=== PATIENT | male | born 1960 ===

== ENCOUNTER 2020-03-05 11:16 | Inpatient (IN) ==
[2020-03-05] MEDS: NS 0.9% 1000 ml BAG 1,000 ML IV ONE ×3 (13:15→15:20)
[2020-03-05] MEDS ORDERED: Lidocaine 1% MPF 5 ML VIAL INJ ONE (13:49)
[2020-03-05 13:50] LABS: ABS Basophils 0.1 10^3/ul (0-0.2); ABS Lymphocytes 2.3 10^3/ul (1.0-4.8); ABS Monocytes 1.2 10^3/ul (0-0.8); ABS Neutrophils 8.2 10^3/ul (1.5-7.7); Eosinophil % 0.2 %; Hematocrit 43 % (42-52); Hemoglobin 14.2 g/dL (14.0-18.0); Lymphocyte % 19.5 %; Mean Corpuscular HGB Conc 33 g/dL (31-36); Mean Corpuscular Hemoglobin 30 pg (27-31); Mean Corpuscular Volume 91 fL (80-94); Mean Platelet Volume 8.1 fL (7.4-10.4); Platelet Count 316 10^3/uL (150-450); Red Blood Count 4.69 10^6 /uL (4.18-5.48); Red Cell Distribution Width 13 % (10-15); White Blood Count 11.8 10^3/uL (3.5-10.8)
[2020-03-05 14:07] LABS: Influenza A Molecular Negative (Negative); Influenza B Molecular Negative (Negative)
[2020-03-05 14:11] LABS: Activated Partial Thrombo Time 36.6 seconds (26.0-38.0); INR 1.2 (0.82-1.09)
[2020-03-05 14:20] LABS: ALT 18 U/L (7-52); Albumin 4.3 g/dL (3.2-5.2); Albumin/Globulin Ratio 1.2 (1-3); Alkaline Phosphatase 124 U/L (34-104); BUN/Creatinine Ratio 15.9 (8-20); Blood Urea Nitrogen 18 mg/dL (6-24); C Reactive Protein 15.77 mg/L (<8.01); CO2 Carbon Dioxide 27 mmol/L (22-32); Calcium 11.5 mg/dL (8.6-10.3); Chloride 96 mmol/L (101-111); EGFR African American 80.6 (>60); EGFR Non-African American 66.7 (>60); Globulin 3.6 g/dL (2-4); Glucose 90 mg/dL (70-100); Sodium 131 mmol/L (135-145); Total Protein 7.9 g/dL (6.4-8.9)
[2020-03-05 14:41] LABS: Anion Gap 8 mmol/L (2-11)
[2020-03-05 15:09] LABS: Body Fluid Source Cerebral Spinal
[2020-03-05 15:34] LABS: CSF Glucose 45 mg/dL (40-70)
[2020-03-05 16:03] LABS: Body Fluid Mono 40 %
[2020-03-05] MEDS ORDERED: cefTRIAXone 2 GM ADDV.VIAL 2 GM in NS 0.9% 100 ml BAG 100 ML IVPB ONE (16:20)
[2020-03-05] MEDS ORDERED: Acyclovir IV 1,000 MG in NS 0.9% 250 ml 250 ML IVPB ONE (16:22)
[2020-03-05 16:27] LABS: Potassium Redraw 3.9 mmol/L (3.5-5.0)
[2020-03-05] MEDS ORDERED: NS 0.9% 1000 ml BAG 1,000 ML IV ONE (17:01)
[2020-03-05] MEDS ORDERED: Ondansetron 4 mg VIAL 2 MG/ML 2 ml VIAL IV ONE (17:01)
[2020-03-05] MEDS ORDERED: Vancomycin 2,000 MG in NS 0.9% 500 ml BAG 500 ML IVPB ONE (18:00)
[2020-03-05] MEDS ORDERED: Vancomycin per Pharmacy 1 EA NOTE FOLLOW UP SCH (18:00)
[2020-03-05] MEDS ORDERED: Al Hydrox/Mg Hydrox/Simet LIQ 30 ML UDC PO PRN (18:19)
[2020-03-05] MEDS ORDERED: Ondansetron 4 mg VIAL 2 MG/ML 2 ml VIAL IV PRN (18:19)
[2020-03-05] MEDS ORDERED: NS 0.9% 1000 ml BAG 1,000 ML IV SCH (18:30)
[2020-03-05] MEDS: Latanoprost 0.005% 2.5 ml BTL BOTH EYES SCH (23:22)
[2020-03-05] MEDS: Enoxaparin 40 MG/0.4 ML SYR SUBCUT SCH (23:23)
[2020-03-06] MEDS ORDERED: Acyclovir IV 500 MG/10 ML 100 ML VIAL (500 MG) IVPB SCH (01:00)
[2020-03-06] MEDS: Acyclovir IV 850 MG in NS 0.9% 250 ml 250 ML IVPB SCH ×3 (05:37→22:54)
[2020-03-06] MEDS ORDERED: Vancomycin 1,250 MG IV x ONCE IVPB SCH ×2 (06:00→08:00)
[2020-03-06 06:08] LABS: ABS Basophils 0.1 10^3/ul (0-0.2); ABS Eosinophils 0.2 10^3/ul (0-0.6); ABS Lymphocytes 2.7 10^3/ul (1.0-4.8); ABS Neutrophils 5.4 10^3/ul (1.5-7.7); Eosinophil % 1.7 %; Hematocrit 41 % (42-52); Hemoglobin 13.5 g/dL (14.0-18.0); Lymphocyte % 29.5 %; Mean Corpuscular HGB Conc 33 g/dL (31-36); Mean Corpuscular Hemoglobin 30 pg (27-31); Mean Corpuscular Volume 91 fL (80-94); Mean Platelet Volume 8.1 fL (7.4-10.4); Nucleated Red Blood Cells % 0.1; Platelet Count 293 10^3/uL (150-450); Red Blood Count 4.45 10^6 /uL (4.18-5.48); Red Cell Distribution Width 13 % (10-15); White Blood Count 9.3 10^3/uL (3.5-10.8)
[2020-03-06 06:32] LABS: BUN/Creatinine Ratio 15.8 (8-20); Calcium 9.9 mg/dL (8.6-10.3); EGFR African American 79.8 (>60); Potassium 4.1 mmol/L (3.5-5.0)
[2020-03-06] MEDS: cefTRIAXone 2 GM ADDV.VIAL 2 GM in NS 0.9% 100 ml BAG 100 ML IV SCH ×2 (07:40→18:32)
[2020-03-06] MEDS: Cholecalciferol (VIT D3) 1,000 unit TAB PO SCH (10:29)
[2020-03-06] MEDS: Aspirin EC 81 mg TAB.EC (enteric coated) PO SCH (10:30)
[2020-03-06] MEDS: Nicotine PATCH 7 MG/24 HR PATCH TRANSDERM SCH (10:31)
[2020-03-06] MEDS: VANCOMYCIN IVPB SCH (18:32)
[2020-03-06] MEDS: Enoxaparin 40 MG/0.4 ML SYR SUBCUT SCH (23:01)
[2020-03-06] MEDS: Latanoprost 0.005% 2.5 ml BTL BOTH EYES SCH (23:01)
[2020-03-07] MEDS: VANCOMYCIN IVPB SCH ×3 (02:42→18:18)
[2020-03-07] MEDS: Acyclovir IV 850 MG in NS 0.9% 250 ml 250 ML IVPB SCH ×3 (04:23→19:32)
[2020-03-07] MEDS: cefTRIAXone 2 GM ADDV.VIAL 2 GM in NS 0.9% 100 ml BAG 100 ML IV SCH ×2 (06:08→18:22)
[2020-03-07] MEDS ORDERED: Vancomycin Trough Check NOTE FOLLOW UP ONE (07:30)
[2020-03-07] MEDS: Aspirin EC 81 mg TAB.EC (enteric coated) PO SCH (07:32)
[2020-03-07] MEDS: Cholecalciferol (VIT D3) 1,000 unit TAB PO SCH (07:33)
[2020-03-07] MEDS: Nicotine PATCH 7 MG/24 HR PATCH TRANSDERM SCH (07:34)
[2020-03-07 11:01] LABS: BUN/Creatinine Ratio 15.1 (8-20); C Reactive Protein 9.64 mg/L (<8.01); Calcium 10.1 mg/dL (8.6-10.3); EGFR African American 86.8 (>60); EGFR Non-African American 71.8 (>60); Potassium 3.9 mmol/L (3.5-5.0)
[2020-03-07 11:07] LABS: ABS Basophils 0.1 10^3/ul (0-0.2); ABS Eosinophils 0.2 10^3/ul (0-0.6); ABS Lymphocytes 1.6 10^3/ul (1.0-4.8); ABS Monocytes 0.7 10^3/ul (0-0.8); ABS Neutrophils 5.3 10^3/ul (1.5-7.7); Hematocrit 39 % (42-52); Hemoglobin 12.9 g/dL (14.0-18.0); Lymphocyte % 20.6 %; Mean Corpuscular HGB Conc 33 g/dL (31-36); Mean Corpuscular Hemoglobin 30 pg (27-31); Mean Corpuscular Volume 92 fL (80-94); Mean Platelet Volume 8.7 fL (7.4-10.4); Platelet Count 281 10^3/uL (150-450); Red Blood Count 4.26 10^6 /uL (4.18-5.48); Red Cell Distribution Width 13 % (10-15); White Blood Count 7.8 10^3/uL (3.5-10.8)
[2020-03-07 11:13] LABS: Vancomycin Trough 14.9 mcg/mL
[2020-03-07] MEDS: Enoxaparin 40 MG/0.4 ML SYR SUBCUT SCH (19:31)
[2020-03-07] MEDS: Latanoprost 0.005% 2.5 ml BTL BOTH EYES SCH (21:00)
[2020-03-07 23:09] LABS: IgG Immunoblot Negative (Negative); IgM Immunoblot Negative (Negative)
[2020-03-08 01:29] LABS: Enterovirus Source CSF
[2020-03-08] MEDS: VANCOMYCIN IVPB SCH ×2 (01:59→10:19)
[2020-03-08] MEDS: Acyclovir IV 850 MG in NS 0.9% 250 ml 250 ML IVPB SCH ×3 (04:00→19:39)
[2020-03-08] MEDS: cefTRIAXone 2 GM ADDV.VIAL 2 GM in NS 0.9% 100 ml BAG 100 ML IV SCH (05:02)
[2020-03-08 06:33] LABS: ABS Basophils 0.1 10^3/ul (0-0.2); ABS Eosinophils 0.4 10^3/ul (0-0.6); ABS Lymphocytes 2.4 10^3/ul (1.0-4.8); ABS Monocytes 0.8 10^3/ul (0-0.8); ABS Neutrophils 4.2 10^3/ul (1.5-7.7); Eosinophil % 5.1 %; Hematocrit 38 % (42-52); Hemoglobin 12.3 g/dL (14.0-18.0); Lymphocyte % 30.4 %; Mean Corpuscular HGB Conc 33 g/dL (31-36); Mean Corpuscular Hemoglobin 30 pg (27-31); Mean Corpuscular Volume 92 fL (80-94); Mean Platelet Volume 8.7 fL (7.4-10.4); Platelet Count 295 10^3/uL (150-450); Red Blood Count 4.11 10^6 /uL (4.18-5.48); Red Cell Distribution Width 13 % (10-15); White Blood Count 7.9 10^3/uL (3.5-10.8)
[2020-03-08 06:38] LABS: Calcium 9.8 mg/dL (8.6-10.3); Potassium 3.8 mmol/L (3.5-5.0)
[2020-03-08 06:43] LABS: BUN/Creatinine Ratio 13.3 (8-20); EGFR African American 95.1 (>60); EGFR Non-African American 78.6 (>60)
[2020-03-08] MEDS: Nicotine PATCH 7 MG/24 HR PATCH TRANSDERM SCH (09:10)
[2020-03-08] MEDS: Aspirin EC 81 mg TAB.EC (enteric coated) PO SCH (09:26)
[2020-03-08] MEDS: Cholecalciferol (VIT D3) 1,000 unit TAB PO SCH (09:26)
[2020-03-08 11:49] LABS: HSV 1 PCR, CSF Negative
[2020-03-08 11:50] LABS: HSV 2 PCR, CSF Positive
[2020-03-08 16:34] LABS: Anaplasma phagocytophilium <1:64 titer (<1:64); Lyme Disease Serology Negative (Negative)
[2020-03-08] MEDS: Enoxaparin 40 MG/0.4 ML SYR SUBCUT SCH (19:39)
[2020-03-08] MEDS: Latanoprost 0.005% 2.5 ml BTL BOTH EYES SCH (19:49)
[2020-03-09] MEDS: Cholecalciferol (VIT D3) 1,000 unit TAB PO SCH (08:22)
[2020-03-09] MEDS: Aspirin EC 81 mg TAB.EC (enteric coated) PO SCH (08:22)
[2020-03-09] MEDS: Nicotine PATCH 7 MG/24 HR PATCH TRANSDERM SCH (08:27)
[2020-03-09] MEDS ORDERED: Vancomycin Trough Check NOTE FOLLOW UP ONE (10:00)
[2020-03-09 13:48] VITALS: BP 142/69
== END 2020-03-09 13:18 | disposition home or self-care (01) | DRG 51 ==
LOC: ED 11:16 → MED 18:19
PROVIDERS: ADMIT Student in an Organized Health Care Education/Training Program; ATTEND Internal Medicine